=== PATIENT | female | born 1990 | race Caucasian/White ===

== ENCOUNTER 2016-10-11 20:42 | Emergency (ER) | payer BC, OTHER ==
[~2016-10-11] VITALS: Ht 149.9 cm; Wt 38.0 kg
[~2016-10-11 20:42] MED LIST: PRENTAB26 PO
[2016-10-11 20:47] VITALS: TEMP 36.6; Ht 149.9 cm; Wt 38.0 kg
[2016-10-11] MEDS ORDERED: SODIUM CHLORIDE 0.9% 500ML 500 ML IV STA (21:41)
--- NOTE | 2016-10-11 22:08 | DIAGNOSTIC IMAGING REPORT ---
KUB CLINICAL HISTORY: right flank pain. Hx stones pain COMPARISON STUDY: No previous studies for comparison. FINDINGS: Mild nonobstructive ileus. Intra-axial poorly seen due to overlying bowel content. No definite calcifications are appreciated. IMPRESSION: Mild nonobstructive ileus. Poor visibility of the urinary tracts due to overlying bowel content. Electronically signed by: Paul Prieto M.D. 10/11/2016 10:07 PM Dictated Date/Time: 10/11/2016 10:06 PM
[2016-10-11 22:16] LABS: BASO % 0.5 %; BASO ABS # 0.04 K/uL (0-0.2); COMPLETE YES; EOS % 1.1 %; IG% 0.1 %; LYMPH % 45.4 %; LYMPH ABS # 4.01 K/uL (1.2-3.4); MEAN CELL VOLUME 83.2 fL (80-100); MEAN CORPUSCULAR HEMOGLOBIN 28.7 pg (25-34); MEAN CORPUSCULAR HGB CONC 34.5 g/dl (32-36); MEAN PLATELET VOLUME 10.1 fL (7.4-10.4); MONO % 4.6 %; NEUT % 48.3 %; PLATELET COUNT 300 K/uL (130-400); RED BLOOD COUNT 5.05 M/uL (4.2-5.4); WHITE BLOOD COUNT 8.83 K/uL (4.8-10.8)
[2016-10-11 22:38] LABS: BUN/CREATININE RATIO 17.6 (10-20); CREATININE 0.89 mg/dl (0.60-1.20); POTASSIUM 4.1 mmol/L (3.5-5.1)
[2016-10-11 22:39] LABS: CALCIUM 9.1 mg/dl (8.5-10.1)
[2016-10-11 22:41] LABS: ALB/GLOB RATIO 1.2 (0.9-2)
[2016-10-12 00:55] LABS: URINE APPEARANCE CLOUDY (CLEAR); URINE BILIRUBIN NEG (NEG); URINE COLOR YELLOW; URINE EPITHELIAL CELL AUTO >30 /lpf (0-5); URINE NITRITE NEG (NEG); URINE PH 7.5 (4.5-7.5); URINE SPECIFIC GRAVITY 1.013 (1.000-1.030); UROBILINOGEN NEG (NEG); ZZUR CULT IF INDIC CLEAN CATCH YES
[2016-10-12 00:57] VITALS: BP 99/58; PULSE 61; O2SAT 99
[2016-10-12 01:06] LABS: MANUAL MICROSCOPIC REQUIRED? NO; REVIEW REQ? NO
--- NOTE | 2016-10-12 02:17 | EMERGENCY ROOM VISIT NOTE ---
History First contact with patient: 21:33 Chief Complaint: BACK PAIN Stated Complaint: BACK PAIN LIKE WHEN PT HAD MRSA,SEPSIS,KSTONES History of Present Illness The patient is a 26 year old female who presents to the Emergency Room with complaints of right-sided flank pain/back pain for the past 2-3 weeks. The patient has not had fever or chills. No difficulty using the bathroom. She reports a past history of kidney stones that became infected and made her uroseptic. The patient required life flight to [facility] when this occurred, and she is very concerned about her symptoms. She has not taken anything over- the-counter for her discomfort. She denies chance of . No abdominal pain. She does not report alleviating or aggravating factors. Review of Systems More than 10 systems were reviewed and otherwise negative with the exception of history of present illness. Past Medical/Surgical History Medical Problems: (1) Active labor (2) meconium (3) meconium (4) Supraventricular tachycardia, nonsustained Family History No pertinent family history Social History Smoking Status: Current Every Day Smoker Marital Status: single Housing Status: lives with family Occupation Status: unemployed Current/Historical Medications No Active Prescriptions or Reported Meds Allergies Coded Allergies: Codeine (Verified Allergy, Unknown, unknown, 10/11/16) Hydrocodone (Verified Adverse Reaction, Mild, HYPER, 10/11/16) Physical Exam Vital Signs Date Time Temp Pulse Resp B/P (MAP) Pulse Ox O2 Delivery O2 Flow Rate FiO2 10/12/16 00:57 61 18 99/58 99 Room Air 10/11/16 20:47 36.6 84 18 103/78 100 Room Air Pain Rating (0-10): 0 Physical Exam VITALS: Vitals are noted on the nurse's note and reviewed by myself. Vital signs stable. GENERAL: Very petite female laying comfortably in her emergency department bed. She does not appear toxic or in distress. HEAD: Normocephalic atraumatic. HEART: Regular rate and rhythm without murmurs gallops or rubs. LUNGS: Clear to auscultation bilaterally without wheezes, rales or rhonchi. No retractions or accessory muscle use. ABDOMEN: Positive normal bowel sounds x 4. Soft, nontender, without masses or organomegaly. No guarding or rebound tenderness. No CVA tenderness. MUSCULOSKELETAL: No muscle atrophy, erythema, or edema noted. Full range of motion without joint tenderness in all extremities. Medical Decision & Procedures ER Provider Diagnostic Interpretation: KUB CLINICAL HISTORY: right flank pain. Hx stones pain COMPARISON STUDY: No previous studies for comparison. FINDINGS: Mild nonobstructive ileus. Intra-axial poorly seen due to overlying bowel content. No definite calcifications are appreciated. IMPRESSION: Mild nonobstructive ileus. Poor visibility of the urinary tracts due to overlying bowel content. Laboratory Results 10/11/16 22:05 Red Blood Count 5.05, Mean Corpuscular Volume 83.2, Mean Corpuscular Hemoglobin 28.7, Mean Corpuscular Hemoglobin Concent 34.5, Mean Platelet Volume 10.1, Neutrophils (%) (Auto) 48.3, Lymphocytes (%) (Auto) 45.4, Monocytes (%) (Auto) 4.6, Eosinophils (%) (Auto) 1.1, Basophils (%) (Auto) 0.5, Neutrophils # (Auto) 4.26, Lymphocytes # (Auto) 4.01, Monocytes # (Auto) 0.41, Eosinophils # (Auto) 0.10, Basophils # (Auto) 0.04 10/11/16 22:05 Test 10/11/16 22:05 10/12/16 00:30 White Blood Count 8.83 K/uL (4.8-10.8) Red Blood Count 5.05 M/uL (4.2-5.4) Hemoglobin 14.5 g/dL (12.0-16.0) Hematocrit 42.0 % (37-47) Mean Corpuscular Volume 83.2 fL (80-100) Mean Corpuscular Hemoglobin 28.7 pg (25-34) Mean Corpuscular Hemoglobin Concent 34.5 g/dl (32-36) Platelet Count 300 K/uL (130-400) Mean Platelet Volume 10.1 fL (7.4-10.4) Neutrophils (%) (Auto) 48.3 % Lymphocytes (%) (Auto) 45.4 % Monocytes (%) (Auto) 4.6 % Eosinophils (%) (Auto) 1.1 % Basophils (%) (Auto) 0.5 % Neutrophils # (Auto) 4.26 K/uL (1.4-6.5) Lymphocytes # (Auto) 4.01 K/uL (1.2-3.4) Monocytes # (Auto) 0.41 K/uL (0.11-0.59) Eosinophils # (Auto) 0.10 K/uL (0-0.5) Basophils # (Auto) 0.04 K/uL (0-0.2) RDW Standard Deviation 38.3 fL (36.4-46.3) RDW Coefficient of Variation 12.9 % (11.5-14.5) Immature Granulocyte % (Auto) 0.1 % Immature Granulocyte # (Auto) 0.01 K/uL (0.00-0.02) Anion Gap 7.0 mmol/L (3-11) Est Creatinine Clear Calc Drug Dose 58.0 ml/min Estimated GFR () 104.4 Estimated GFR (Non- 90.1 BUN/Creatinine Ratio 17.6 (10-20) Calcium Level 9.1 mg/dl (8.5-10.1) Total Bilirubin 0.3 mg/dl (0.2-1) Aspartate Amino Transf (AST/SGOT) 12 U/L (15-37) Alanine Aminotransferase (ALT/SGPT) 15 U/L (12-78) Alkaline Phosphatase 116 U/L (45-117) Total Protein 7.6 gm/dl (6.4-8.2) Albumin 4.1 gm/dl (3.4-5.0) Globulin 3.5 gm/dl (2.5-4.0) Albumin/Globulin Ratio 1.2 (0.9-2) Lipase 145 U/L (73-393) Urine Color YELLOW Urine Appearance CLOUDY (CLEAR) Urine pH 7.5 (4.5-7.5) Urine Specific [place] 1.013 (1.000-1.030) Urine Protein NEG (NEG) Urine Glucose (UA) NEG (NEG) Urine Ketones NEG (NEG) Urine Occult Blood NEG (NEG) Urine Nitrite NEG (NEG) Urine Bilirubin NEG (NEG) Urine Urobilinogen NEG (NEG) Urine Leukocyte Esterase SMALL (NEG) Urine WBC (Auto) 1-5 /hpf (0-5) Urine RBC (Auto) 0-4 /hpf (0-4) Urine Hyaline Casts (Auto) 0 /lpf (0-5) Urine Epithelial Cells (Auto) >30 /lpf (0-5) Urine Bacteria (Auto) 4+ (NEG) Urine Test NEG (NEG) Medications Administered Medications (Trade) Dose Ordered Sig/Patsy Route Start Time Stop Time Status Last Admin Dose Admin Sodium Chloride 500 ml @ 999 mls/hr Q31M STAT IV 10/11/16 21:41 10/11/16 22:11 DC 10/11/16 22:14 999 MLS/HR ED Course Physical exam and history were performed. Nursing notes and EMR were reviewed. Patient appears to have right-sided back/flank pain for the past 2-3 weeks. The patient does not appear toxic on examination. IV access was established and labs were obtained. The patient was hydrated with normal saline. The patient has had multiple CT scans over the past year between hearing [employer] and I elected to start with a KUB. The patient's blood work is as above and was reviewed. She does not have a significantly elevated white blood cell count, gross anemia, bandemia, or significant electrolyte imbalance. Lipase and transaminases are nondiagnostic. The patient's urine is without blood or evidence of infection. KUB is without evidence of stone and does show a mild ileus. Evidently the patient has had this in the past. Overall the patient appears stable for discharge home. She is not having nausea , vomiting, or abdominal pain. Her symptoms fever a musculoskeletal etiology considering that she has been with discomfort for the past 2-3 weeks. The patient will be treated conservatively with ibuprofen and Tylenol. She is to follow with her primary care physician in the next few days for recheck of her condition and was otherwise invited back to the ER anytime. The chart was completed utilizing [employer] Voice Recognition Software. Grammatical errors, random word insertions, pronoun errors, and incomplete sentences are an occasional consequence of this system due to software limitations, ambient noise, and hardware issues. Any formal questions or concerns about the content, text, or information contained within the body of this dictation should be directly addressed to the provider for clarification. . Medical Decision Differential diagnosis: Etiologies such as musculoskeletal, disc herniation, fracture, aortic disease, metastatic disease, cord compression, discitis, infection, renal colic, gastrointestinal, acute exacerbation of chronic back pain, sciatica, cauda equina, as well as others were entertained. Impression Primary Impression: Back pain Departure Information Dispostion Home / Self-Care Condition FAIR Prescriptions No Active Prescriptions or Reported Meds Forms HOME CARE DOCUMENTATION FORM, IMPORTANT VISIT INFORMATION Patient Instructions My [facility] Additional Instructions You were seen and evaluated today on an emergency basis only. This is not a substitute for, or an effort to provide, complete comprehensive medical care. It is not possible to recognize and treat all injuries or illnesses in a single emergency department visit. For this reason it is recommended that you followup with your primary care physician for ongoing care and evaluation. Contact them this week. For baseline pain relief you may alternate ibuprofen and acetaminophen every 4 hours for pain control. Take 400 mg ibuprofen (Advil) and then 4 hours later take 650 mg acetaminophen (Tylenol). Do not take more than 3000 mg acetaminophen in a single day. You are welcome to return to the emergency department anytime with new, worsening, or concerning symptoms.
== END 2016-10-12 01:20 | disposition home or self-care (01) ==
LOC: C.EDB 20:43 → C.EDC 10-12 01:20
DX: M54.5 Low back pain (principal); Z87.442 Personal history of urinary calculi; F17.210 Nicotine dependence, cigarettes, uncomplicated

== ENCOUNTER 2016-10-15 00:18 | Emergency (ER) | payer BC, OTHER ==
[~2016-10-15] VITALS: Ht 149.9 cm; Wt 37.2 kg
[2016-10-15 00:24] VITALS: TEMP 36.7; Ht 149.9 cm; Wt 37.2 kg
--- NOTE | 2016-10-15 00:55 | EMERGENCY ROOM VISIT NOTE ---
History Report prepared by Lathaibamita: Narendra Bond Under the Supervision of: Dr. Darshan Aponte D.O. First contact with patient: 00:29 Chief Complaint: MENTAL HEALTH EVALUATION Stated Complaint: DEPRESSION + PTSD History of Present Illness The patient is a 26 year old female who presents to the Emergency Room with complaints of intermittent suicidal ideation beginning four day ago. She has a history of post depression and anxiety attacks. She was seen in the ED recently for flank pain four days ago, and states that her symptoms began following discharge. The patient states "inside, I feel ". She states that she is trying to get into counseling, but has not been able yet. She states that she feels that she needs her medications adjusted. The patient states that she currently does not feel suicidal. She states that she is randomly triggered by events that cause her to feel suicidal, but feels totally fine when she is alone. She notes that she previously saw a psychiatrist. The patient states that she does not think that she would actually hurt herself because she has a family and too much to live for. Source of History: patient Onset: Four days ago Quality: other (suicidal ideation) Timing: intermittent Review of Systems See HPI for pertinent positives and negatives. A total of ten systems were reviewed and were otherwise negative. Past Medical & Surgical Medical Problems: (1) Active labor (2) meconium (3) meconium (4) Supraventricular tachycardia, nonsustained Family History No pertinent family history stated. Social History Smoking Status: Current Every Day Smoker Marital Status: single Housing Status: lives with family Occupation Status: unemployed Current/Historical Medications No Active Prescriptions or Reported Meds Allergies Coded Allergies: Codeine (Verified Allergy, Unknown, unknown, 10/15/16) Hydrocodone (Verified Adverse Reaction, Mild, HYPER, 10/15/16) Physical Exam Vital Signs Date Time Temp Pulse Resp B/P (MAP) Pulse Ox O2 Delivery O2 Flow Rate FiO2 10/15/16 00:24 36.7 117 18 120/87 96 Room Air Physical Exam GENERAL: Awake, alert, well-appearing, in no distress HENT: Normocephalic, atraumatic. Oropharynx unremarkable. EYES: Normal conjunctiva. Sclera non-icteric. NECK: Supple. No nuchal rigidity. FROM. No JVD. RESPIRATORY: Clear to auscultation. CARDIAC: Regular rate, normal rhythm. Extremities warm and well perfused. Pulses equal. ABDOMEN: Soft, non-distended. No tenderness to palpation. No rebound or guarding. No masses. RECTAL: Deferred. MUSCULOSKELETAL: Chest examination reveals no tenderness. The back is symmetrical on inspection without obvious abnormality. There is no CVA tenderness to palpation. No joint edema. LOWER EXTREMITIES: Calves are equal size bilaterally and non-tender. No edema. No discoloration. NEURO: Normal sensorium. No sensory or motor deficits noted. SKIN: No rash or jaundice noted. PSYCH: anxious. Medical Decision & Procedures ED Course 0036: The patient was evaluated in room A6. A complete history and physical exam was performed. 0100: Ordered Ativan 1 mg home pack PO. I reevaluated the patient. Discussed results and discharge instructions: she verbalized understanding and agreement. The patient is ready for discharge. Medical Decision Differential diagnoses include but are not limited to; anxiety, depression, bipolar disorder, contracts for safety, and explosive disorder. Patient resting in no distress contracts for safety boyfriends at bedside she is safe for discharge currently has no suicidal ideation homicidal ideation or plan. We'll refer to psychiatry the correctional counselor/case manager is given her multiple resources. We'll treat with a home pack of Ativan Impression Primary Impression: Acute anxiety Scribe Attestation The scribe's documentation has been prepared under my direction and personally reviewed by me in its entirety. I confirm that the note above accurately reflects all work, treatment, procedures, and medical decision making performed by me. Departure Information Dispostion Home / Self-Care Prescriptions No Active Prescriptions or Reported Meds Referrals No Doctor, Assigned (PCP) Patient Instructions Anxiety Disorder, My [facility]
[2016-10-15] MEDS ORDERED: ATIVAN 1MG HOMEPACK PO ONE (01:00)
[2016-10-15 01:18] VITALS: BP 163/78; PULSE 72; O2SAT 99
== END 2016-10-15 01:19 | disposition home or self-care (01) ==
LOC: C.EDB 00:19 → C.EDA 01:19
DX: F41.9 Anxiety disorder, unspecified (principal); Z86.59 Personal history of other mental and behavioral disorders